=== PATIENT | male | born 1955 | race Caucasian/White ===

== ENCOUNTER → 2016-05-03 | Outpatient (CLI) | payer MEDICAID | LOC: CIMAGING 10:20 | PROVIDERS: ATTEND Family Medicine | DX: R20.0 Anesthesia of skin (principal); M54.2 Cervicalgia | CPT/HCPCS: 72040-PO ==

== ENCOUNTER → 2016-05-17 | Outpatient (CLI) | payer OTHER | LOC: FIMAGING 11:41 | PROVIDERS: ATTEND Family Medicine | DX: M50.30 Other cervical disc degeneration, unspecified cervical region (principal); M99.71 Connective tissue and disc stenosis of intervertebral foramina of cervical region ==

== ENCOUNTER → 2016-05-31 | Outpatient (CLI) | payer OTHER ==
[~2016-05-31] MED LIST: GADOBUTROL 10 ML VIAL IVP ONE
== END ==
LOC: FIMAGING 06:39
PROVIDERS: ATTEND Neurological Surgery
DX: M51.14 Intervertebral disc disorders with radiculopathy, thoracic region (principal); R93.8 Abnormal findings on diagnostic imaging of other specified body structures
CPT/HCPCS: 72146; 72156; A9585